=== PATIENT | female | born 1940 | race Caucasian/White ===

== ENCOUNTER 2016-10-16 15:07 | Inpatient (IN) | payer MEDICARE, BC ==
--- NOTE | ~2016-10-16 | HP ---
History And Physical [place] [id number] [facility] [place]. [address] NAME: ALLIE NARVAEZ : 38 STATUS : ADM IN [facility]#: [id number] AGE: 76 ADM/REG DATE : 10/16/16 MR#: [id number] REPORT SERV DATE: 10/17/16 DICTATED BY: VINCENT TOLEDO DATE: 10/16/16 REPORT STATUS : Draft TRANSCRIBED BY: TRIP DATE: 10/16/16 DATE OF ADMISSION: 10/16/2016 TIME: 8:00 p.m. HISTORY: The patient is a 76-year-old patient, well known to me, in her usual state of health when she went out on the track today for her walk up on [place]. Upon getting out of the car, she tripped on a rock and fell, resulting in a right shoulder pain and elbow pain. ER evaluation shows an impaction fracture of the right upper humerus and possibly an elbow fragment. She is seen in followup by Dr. Tariq Lyon with prior left total shoulder replacement with limited mobility related to this. Other medical problems include hypertension, hypercholesterolemia, generalized anxiety, unsteady gait, and distant history of vasovagal syncope, but none in years. HOME MEDICATIONS: Include atenolol 50 mg q.a.m., Restasis 0.05% one drop twice daily both eyes for dry eyes, fluoxetine 40 mg daily, L-thyroxine 25 mcg q.a.m., lorazepam 0.5 mg daily p.r.n. anxiety, Aleve 220 mg b.i.d. p.r.n., simvastatin 40 mg daily, Detrol LA 4 mg at bedtime, trazodone 50 mg a bedtime. ALLERGIES: INTOLERANCES INCLUDE CODEINE, DIAZEPAM, VERSED, HYDROCODONE CAUSES NAUSEA AND VOMITING. LATEX CAUSES HIVES. PHYSICAL EXAMINATION: VITAL SIGNS: Today BP 140/100 initially, recheck 140/80, pulse 60 and regular sinus rhythm. GENERAL: The patient was initially in moderate distress, better now with pain control. She is alert and oriented to person, place, and time. CHEST: Clear. CV: Regular rate and rhythm. No murmurs, gallops, or rubs. NECK: No bruits. ABDOMEN: Soft, nontender, nondistended. MUSCULOSKELETAL: Right shoulder is immobilized and not examined, it appears indurated. No trauma to the face, head, neck, hips, or knees. None to the feet. LABORATORY DATA: X-ray showed impaction proximal humeral fracture on the right. H and H 13.6 and 39.7, WBC 12,200. BUN and creatinine 11 and 0.59, glucose 116, sodium 135. IMPRESSION: 1. Status post trip and fall with resulting right humeral comminuted impaction fracture. 2. Possible elbow fracture fragment as well. Orthopedics to evaluate. 3. Unsteady gait. Chronically. 4. Hypertension. 5. Hypercholesterolemia. PLAN: She will be admitted due to inability to self-care with right humeral fracture History And Physical [address] [address] NAME: ALLIE NARVAEZ : 38 STATUS : ADM IN [facility]#: [id number] AGE: 76 ADM/REG DATE : 10/16/16 MR#: [id number] REPORT SERV DATE: 10/17/16 DICTATED BY: VINCENT TOLEDO DATE: 10/16/16 REPORT STATUS : Draft TRANSCRIBED BY: TRIP DATE: 10/16/16 complicated with making her right arm unusable with restricted use of the left arm due to prior left total shoulder replacement. Home medications will be continued. Unsteady gait will be assessed at the appropriate time. This has been a chronic persistent problem. She will also need to be transitioned to a penitentiary facility for further recovery after evaluated and treated by Orthopedics. Initially, she is in a sling and swath and is under pain control. Case management will have help with placement at the appropriate time. RUPALI/TIRP Vincent Toledo M.D. / [id number] CC: Harjit Mead M.D.
--- NOTE | ~2016-10-16 | DS ---
Discharge Summary [facility] [address] [place]. [address] NAME: ALLIE NARVAEZ : 38 STATUS : DIS IN PAT#: [id number] AGE: 76 ADM/REG DATE : 10/16/16 MR#: [id number] REPORT SERV DATE: 10/25/16 DICTATED BY: VINCENT TOLEDO DATE: 10/24/16 REPORT STATUS : Draft TRANSCRIBED BY: TRIP DATE: 10/24/16 Data Collection from hospitalization DISCHARGE DIAGNOSES: 1. Right proximal humerus fracture following a fall. 2. Elbow injury. 3. Diabetes. 4. Hypertension. 5. History of stroke. 6. History of transient ischemic attack. 7. Hearing loss. 8. Ringing in the ears. CONSULTATIONS: Tariq Lyon M.D. PROCEDURES PERFORMED: 1. CT scan of the right shoulder without contrast on 10/18/2016. 2. CT scan of the right upper extremity including elbow on 10/18/2016. MEDICATIONS: Tenormin 50 mg daily, vitamin B12 1000 mcg daily, Restasis one drop twice a day, vitamin D 1000 units daily, Lovenox 40 mg subcutaneously every 24 hours, Prozac 40 mg daily, Synthroid 25 mcg before breakfast, Zocor 40 mg at bedtime, Desyrel 50 mg at bedtime, Ativan 0.5 mg daily as needed, Aleve 220 mg twice a day as needed, Percocet 5/325 one tablet every six hours as needed, and Detrol LA 4 mg at bedtime. CONDITION AT DISCHARGE: Stable. DISPOSITION: The patient was discharged to [facility] on a regular diet with activities as instructed. HOSPITAL COURSE: This is a 76-year-old female who had been in her usual state of health when she went out on the track for her walk on [address] on the day of this admission. Upon getting out of her car, she tripped on a rock and fell resulting in right shoulder pain and elbow pain. Evaluation in the emergency room showed impaction fracture of the right upper humerus and possibly an elbow fragment. She is seen in followup by Dr. Tariq Lyon with prior left total shoulder replacement with limited mobility related to this. She was admitted to the hospital at this time for further evaluation and treatment. Upon admission, her home medications were continued. Her unsteady gait would be assessed at the appropriate time, this has been a chronic persistent problem. It was felt she would need to be transitioned to a group home facility for further recovery. She was initially in a sling and swathe and was under pain control. The following day, her pain was controlled. Her lungs were clear. She was seen by Dr. Tariq Lyon. He recommended conservative care of the right proximal humerus fracture in sling and swathe for six weeks. He wanted her to follow up in the clinic for x-rays in 7 to 10 days. On 10/18/2016, she had fair pain control. Her lungs remained clear. She was evaluated by Occupational and Physical Therapy. A CT scan of the shoulder without contrast was performed. There was a comminuted fracture of the right humeral head with impaction. There were at least three Discharge Summary [address] [address] NAME: ALLIE NARVAEZ : 38 STATUS : DIS IN PAT#: [id number] AGE: 76 ADM/REG DATE : 10/16/16 MR#: [id number] REPORT SERV DATE: 10/25/16 DICTATED BY: VINCENT TOLEDO DATE: 10/24/16 REPORT STATUS : Draft TRANSCRIBED BY: MODL DATE: 10/24/16 major fragments of the humeral head. The humeral head remained articulating with the glenoid fossa. CT scan of the right upper extremity without contrast including the elbow was also performed. There was right radial head fracture with free intra-articular fragment. Discharge planning was performed. On 10/19/2016, discharge instructions were given. Due to her improved and stable condition, she was discharged to [facility] with the above-stated instructions. Information collected by: Naya Mansfield I submit the above information as my discharge summary. TG/TRIP Vincent Toledo M.D. / [id number] CC: Vincent Toledo M.D. [facility]
[~2016-10-16 15:07] MED LIST: ACET500CAP PO; ALEVE220 MG PO; ATEN50 PO; ATV.5 PO; ATV1 PO; B COMPLETE PO; DETROL2 PO; DETROLLA4 PO; KLONO1 PO; LEVOTHYROXIN125 MCG PO; LEVOTHYROXIN25 MCG PO; PRILO PO; PRILOSEC40 MG PO; PROZ10 PO; PROZAC40 MG PO; TENORETIC1 TA1 PO; TRAZ100 PO; TRAZ50 PO; VITAMIN B-121000 MC1 SL; VITAMIN B-122500 MCG SL; ZETIA PO; ZOCOR40 PO
[2016-10-16 16:47] LABS: BASOPHILS 0.2 %; BASOPHILS ABSOLUTE 0.02 10/3/uL (0.0-0.16); EOSINOPHILS 2.1 %; EOSINOPHILS ABSOLUTE 0.26 10/3/uL (0.0-0.53); HEMATOCRIT 39.7 % (36.0-48.0); HEMOGLOBIN 13.6 g/dL (12.0-16.0); IMMATURE GRANULOCYTES 0.5 %; IMMATURE GRANULOCYTES ABSOLUTE 0.06 10/3/uL (0.0-0.11); LYMPHOCYTES 8.5 %; LYMPHOCYTES ABSOLUTE 1.03 10/3/uL (0.67-4.30); MEAN CORPUS HGB CONC 34.3 g/dL (32.0-36.0); MEAN CORPUSCULAR HEMOGLOB 31.6 pg (26.0-34.0); MEAN PLATELET VOLUME 9.2 fL (9.2-13.0); MONOCYTES 8.4 %; MONOCYTES ABSOLUTE 1.02 10/3/uL (0.21-1.20); NEUTROPHILS 80.3 %; NEUTROPHILS ABSOLUTE 9.78 10/3/uL (2.02-8.40); PLATELET COUNT 272 10/3/uL (150-400); RED CELL COUNT 4.31 10/6/uL (4.0-5.6)
[2016-10-16 16:48] LABS: ER CBC TAT 0 Hrs 11 Mins; INTERNATIONAL NORMAL RATI 1.1 UNITS (-); MANUAL DIFF NO %; MEAN CORPUSCULAR VOLUME 92.1 fL (80-100); PARTIAL THROMBO TIME 25.9 SEC (22.5-37.2); PROTIME (NOT ORD) 13.7 SEC (12.0-14.5); RBC DISTRIBUTION WIDTH 16.8 % (12.0-16.0); WHITE BLOOD CELLS 12.2 10/3/uL (4.5-10.5)
[2016-10-16 17:00] LABS: BUN (BLOOD UREA NITROGEN) 11 MG/DL (6-23); CALCIUM, SERUM 8.3 MG/DL (8.5-10.4); CHEST PAIN PROFILE TAT 0 Hrs 23 Mins; CHLORIDE, SERUM 100 MMOL/L (96-112); CO2 (CARBON DIOXIDE) 27 MMOL/L (24-34); CREATININE 0.59 MG/DL (0.55-1.02); GFR AFRICAN AMERICAN 102 ML/MIN (>=60); GFR NON AFRICAN AMERICAN 88 ML/MIN (>=60); SODIUM, SERUM 135 MMOL/L (135-148); TROPONIN I <0.02 NG/ML (<0.05)
[2016-10-16 17:01] LABS: GLUCOSE, SERUM 116 MG/DL (60-99)
[2016-10-16 17:26] LABS: ASCORBIC ACID (UR NOT ORDER) NEG (NEG); BILIRUBIN, URINE NEGATIVE (NEG); ER URINALYSIS TAT 0 Hrs 10 Mins; KETONE, URINE TRACE MG/DL (NEG); LEUKOCYTE ESTERASE(NOT OR NEG (NEG); NITRITE (URINE) NEG (NEG); WBC (NOT ORDERED) (RFLEX) 3 (0-5)
[2016-10-16] MEDS ORDERED: ZOCOR40 PO (17:47)
[2016-10-16] MEDS ORDERED: TRAZ50 PO (17:47)
[2016-10-16] MEDS ORDERED: PROZAC40 MG PO (17:47)
[2016-10-16] MEDS ORDERED: ATEN50 PO (17:47)
[2016-10-16] MEDS ORDERED: ATV.5 PO (17:47)
[2016-10-16] MEDS ORDERED: VENTOLIN HFA INH (17:48)
[2016-10-16] MEDS ORDERED: ALEVE220 MG PO (17:49)
[2016-10-16] MEDS ORDERED: SYN.025B PO (17:49)
[2016-10-16] MEDS ORDERED: DETROLLA4 PO (17:49)
[2016-10-16] MEDS ORDERED: RESTASIS OPH (17:50)
[2016-10-16] MEDS ORDERED: VITAMIN D31000 UNIT PO (17:50)
[2016-10-16] MEDS ORDERED: CYANO1000T PO (17:50)
[2017-01-28] MEDS ORDERED: PROTONIX PO (17:41)
[2017-01-28] MEDS ORDERED: PROZAC PO (17:42)
[2017-01-28] MEDS ORDERED: SYN.025B PO (17:42)
[2017-01-28] MEDS ORDERED: DETROLLA4 PO (17:42)
[2017-01-28] MEDS ORDERED: ATV.5 PO (17:48)
[2017-01-28] MEDS ORDERED: ZOCOR40 PO (17:49)
[2017-01-28] MEDS ORDERED: ATEN50 PO (17:49)
[2017-01-28] MEDS ORDERED: RESTASIS OPH (17:50)
[2017-01-28] MEDS ORDERED: VENTOLIN HFA INH (17:50)
[2017-01-28] MEDS ORDERED: VITAMIN B-12 PO (17:51)
[2017-01-28] MEDS ORDERED: VITAMIN D3 PO (17:52)
[2017-01-28] MEDS ORDERED: ACET500CAP PO (17:54)
[2017-01-28] MEDS ORDERED: METPAKSF PO (17:54)
== END 2016-10-19 14:37 | DRG 563 ==
LOC: ER 15:07 → 4SO 18:51
PROVIDERS: Emergency Medicine
PROC: 2W38XYZ Immobilization of Right Upper Extremity using Other Device (ICD-10-PCS; principal; 2016-10-16)
DX: S42.291A Other displaced fracture of upper end of right humerus, initial encounter for closed fracture (principal); I10 Essential (primary) hypertension; W18.09XA Striking against other object with subsequent fall, initial encounter; Y93.01 Activity, walking, marching and hiking; S52.121A Displaced fracture of head of right radius, initial encounter for closed fracture; Y92.39 Other specified sports and athletic area as the place of occurrence of the external cause; Z96.612 Presence of left artificial shoulder joint; E78.00 Pure hypercholesterolemia, unspecified; F41.1 Generalized anxiety disorder; R26.9 Unspecified abnormalities of gait and mobility; Z88.8 Allergy status to other drugs, medicaments and biological substances; Z88.5 Allergy status to narcotic agent; Z91.040 Latex allergy status
CPT/HCPCS: 71010; 73030-RT; 73060-RT; 73080-RT; 73200-RT; 80048; 81001; 82962; 83735; 83880; 84484; 85025; 85610; 85730; 96374; 96375; 97162-GP; 97166-GO; 99285; A9270-GY; G8978-CK-GP; G8979-CK-GP; G8980-CK-GP; J1170; J2405; J2930

== ENCOUNTER 2017-01-20 16:21 | Inpatient (IN) | payer MEDICARE, BC ==
--- NOTE | ~2017-01-20 | IDS ---
Interim Discharge Summary [facility] [address] [place]. [address] NAME: ALLIE NARVAEZ : 38 STATUS : ADM IN [facility]#: [id number] AGE: 76 ADM/REG DATE : 01/20/17 MR#: [id number] REPORT SERV DATE: 01/25/17 DICTATED BY: Rahul MUÑOZ DATE: 01/24/17 REPORT STATUS : Draft TRANSCRIBED BY: MODL DATE: 01/24/17 ADMISSION DATE: 01/20/2017 DISCHARGE DATE: INTERIM DISCHARGE DIAGNOSES: 1. Right femoral neck fracture. 2. Duodenal ulcer with erosive gastritis. 3. Diarrhea, chronic. 4. Hyponatremia. 5. Hypertension. 6. Hypothyroidism. 7. Acute blood loss anemia postoperatively. 8. Anxiety. PROCEDURES: 1. On January 22, the patient underwent a right femoral neck close reduction and internal fixation for a nondisplaced right femoral neck fracture. 2. On January 21, the patient underwent an EGD which revealed bile erosive gastritis which was biopsied; normal gastroesophageal junction; duodenitis; one duodenal ulcer; normal second part of the duodenum; nonerosive esophageal reflux disease per Dr. Davidson. IMAGING AND DIAGNOSTICS: 1. CT of abdomen and pelvis on January 20 revealed diffuse thickening gastric antrum suggesting antritis/duodenitis pattern. No discrete mass or ulcer mound identified although underlying ulcer disease not excluded. No pneumoperitoneum or ascites to suggest a penetrating ulcer. Moderate to severe dextroscoliosis, L-spine and severe multilevel degenerative disc disease; contour deformity right femoral neck consistent with an indeterminate age, subcapital femoral neck fracture. 2. January 20 PA and lateral chest x-ray revealed untreated fracture of the right shoulder with superior migration of the proximal shaft with marked 90 degree angulation of the shaft and humeral head. Lungs are clear. Cardiac silhouette. Hilar region, mediastinum, bone, and soft tissues are normal. 3. January 21 a hip x-ray revealed radiographic findings consistent with acute right femoral neck fracture. 4. A Gastrografin upper GI on January 21 showed no evidence of duodenal or pyloric antral ulcer on water-soluble upper GI exam. HISTORY OF PRESENT ILLNESS: Ms. Allie Narveaz is a very pleasant 76-year-old female, who was a direct admit from Dr. Davidson's office with abdominal pain, nausea, vomiting, dehydration. She was admitted to telemetry bed with Dr. Davidson's admission orders and a permit for EGD with possible biopsy was obtained. Initially, she was on clear liquids and made n.p.o. after midnight on January 20. On Dr. Davidson's admission orders hospitalists were consulted for medical management. Ms. Narvaez was initially seen by Dulce Sanford, nurse practitioner, on the evening of January 20. Hospital service has been managing the patient's medical problems since her admission. I initially saw the patient on the morning of January 21. After reviewing her CT of the abdomen and pelvis, it was noted that she had a right Interim Discharge Summary [address] [address] NAME: ALLIE NARVAEZ : 38 STATUS : ADM IN [facility]#: [id number] AGE: 76 ADM/REG DATE : 01/20/17 MR#: [id number] REPORT SERV DATE: 01/25/17 DICTATED BY: Rahul MUÑOZ DATE: 01/24/17 REPORT STATUS : Draft TRANSCRIBED BY: TRIP DATE: 01/24/17 subcapital femoral neck fracture and I consulted ortho service. The patient was initially seen on January [address] Marcus and Gilda Alvarez for the Orthopedic Service. They saw the patient after her EGD and wrote orders for Ms. Narvaez to be n.p.o. after midnight for surgery on her right hip the following day. I spoke to Vinita Chambers, nurse practitioner, for Dr. Davidson and informed her that we would take over as the primary for Ms. Narvaez, and they would stay as consultants. So on January 22, Ms. Narvaez did undergo right femoral neck closed reduction and internal fixation by Dr. Marcus. On January 24, Ms. Narvaez was seen, and she had no new complaints. She was ambulatory with physical therapy and really wanted to be discharged home rather than going to SNF or rehab. She continued to have diarrhea stools; however, the number of stools were decreasing and quantity was decreasing as well. The diarrhea is chronic as she has had this since October. Dr. Davidson documents that this is likely irritable bowel syndrome. Today, he has ordered Metamucil p.o. daily at bedtime and to continue her Florastor and Protonix. The patient was recently at [facility] after a fall with her right shoulder fracture healing in a sling and swathe without surgical intervention. Family states that she did not do so well there and all providers involved are okay with the patient going home at time of discharge rather than back to skilled care. However, she will be continuing over the weekend to work with physical therapy here for potentially discharging home Friday or Friday with outpatient physical therapy. DISPOSITION: Will be to home again on Friday or Friday and home health is recommended with some outpatient PT. DICTATED BY: GAYLE WhiteP-BC SHRAVAN/CHUNL Rahul Muñoz M.D. / [id number] CC: Harjit Shell M.D.
--- NOTE | ~2017-01-20 | HP ---
History And Physical [place] [place]. [address] NAME: ALLIE NARVAEZ : 36 STATUS : ADM IN [facility]#: [id number] AGE: 76 ADM/REG DATE : 01/20/17 MR#: [id number] REPORT SERV DATE: 01/20/17 DICTATED BY: MISHA DAVIDSON DATE: 01/20/17 REPORT STATUS : Draft TRANSCRIBED BY: MODGlenda DATE: 01/20/17 DATE OF ADMISSION: 01/20/2017 HISTORY OF PRESENT ILLNESS: This is a 76-year-old woman, who is being admitted from my office for upper abdominal pain, nausea, vomiting, melenic stool, and dehydration. This woman has had a variety of orthopedic injuries over the years with trauma from several falls. She injured her left shoulder in 2010 and had to have a shoulder replacement and then a repeat surgery in 2014. This year, she fell and fractured her right humerus. They did not feel it was surgically remediable, and they just let it close on its own. She had been to rehabilitation at [facility], but did not do very well there and only recently has come back to her home. She is having regular caregivers come there and her son, Manoj Narvaez, and [id number], Laura Narvaez, have been looking in on her making sure that she is cared for. Interestingly, she has used Aleve [id number] for years, reporting taking two 220 mg tablets or 440 mg twice daily for years. She has been having intermittent upper abdominal pain and nausea for quite some time. This is worse on the empty stomach and at night. This has become quite severe over the past five to six days. It has gotten to the point where she cannot keep anything down. She has had multiple episodes of emesis over the past few days, but they have only been bilious. There has been no obvious blood. Her stools on the other hand, however, seemed to be melenic. She saw her primary care physician and apparently had some lab work about a month ago. She reports about a 20-pound weight loss since the onset of this illness. The most recent laboratory tests I have for review are from 12/02, at which point her hemoglobin was normal at 13.4 and white count was 6.5. PAST MEDICAL HISTORY: 1. Remote history of peptic ulcer disease, for which she said she had an upper endoscopy at [place] about 20 years ago. 2. Degenerative disk disease, for which she is using the Aleve chronically. 3. Hypertension. 4. Hyperlipidemia. 5. Possible history of diabetes. 6. Hypothyroidism. PAST SURGICAL HISTORY: Status post left shoulder replacement x2 in 2010 and 2014, status post recent healing of the right humerus fracture, status post appendectomy, status post hysterectomy with bilateral salpingo-oophorectomy, status post back surgery. MEDICATIONS: Prozac, lorazepam, simvastatin, Synthroid, tolterodine, Aleve 440 mg twice daily, Tums as needed. ALLERGIES: VALIUM, LATEX, HYDROCODONE CAUSES NAUSEA. FAMILY HISTORY: No GI malignancy. History And Physical [address] [address] NAME: ALLIE NARVAEZ : 38 STATUS : ADM IN [facility]#: [id number] AGE: 76 ADM/REG DATE : 01/20/17 MR#: [id number] REPORT SERV DATE: 01/20/17 DICTATED BY: MISHA DAVIDSON DATE: 01/20/17 REPORT STATUS : Draft TRANSCRIBED BY: TRIP DATE: 01/20/17 SOCIAL HISTORY: She uses no tobacco, but she does drink a moderate amount of alcohol. Her son, Manoj Narvaez, and [id number]-[id number], Laura Narvaez, are patients of ours and are her primary caregivers. REVIEW OF SYSTEMS: Otherwise, unremarkable for general, endocrine, neurologic, psychiatric, pulmonary, cardiovascular or rheumatologic conditions, except for as noted above. PHYSICAL EXAMINATION: GENERAL: She is somewhat frail-appearing elderly woman, who is quite anxious and seems to be in some distress from abdominal pain. VITAL SIGNS: Afebrile. SKIN: Warm and dry. LUNGS: Clear to auscultation. CARDIOVASCULAR: Tachycardic, but without any audible murmur or gallop. ABDOMEN: Soft, but moderately tender in the epigastrium. There is no guarding or rebound tenderness. EXTREMITIES: No edema. IMPRESSION: Significant upper abdominal pain, accompanied by nausea, vomiting, dehydration, and possible melenic stool, the picture is most consistent with nonsteroidal-induced peptic ulcer disease with possible gastrointestinal bleeding, but doubt whether there is any evidence of perforation. RECOMMENDATIONS: 1. We will go ahead and admit her tonight for hydration, antiemetic therapy, and pain medication. 2. We will arrange medical consultation. 3. We will start Protonix 40 mg IV twice daily. 4. We will go ahead and get a CT scan this evening to rule out perforation or other pathology. 5. We will plan upper endoscopy tomorrow afternoon to further guide therapy. /MODL Misha Davidson M.D. / [id number] CC: Harjit Clay M.D.
--- NOTE | ~2017-01-20 | EGD ---
EGD REPORT [facility] [address] [place]. [address] NAME: ALLIE NARVAEZ : 38 STATUS : ADM IN PAT#: [id number] AGE: 76 ADM/REG DATE : 01/20/17 MR#: [id number] REPORT SERV DATE: 01/21/17 DICTATED BY: YAN ROSAS DATE: 01/21/17 REPORT STATUS : Draft TRANSCRIBED BY: [facility] DATE: 01/21/17 Endoscopy Center Patient Name: Allie Narvaez Date of : 1940 Attending MD: YAN ROSAS MD Procedure Date No Time: 01/21/2017 Procedure: Upper GI endoscopy Indications: Epigastric abdominal pain, Anemia, Melena, Nausea with vomiting, Chronic NSAID use Referring MD: JESSICA FONSECA Medicines: Propofol per Anesthesia Complications: No immediate complications. Estimated blood loss: None. Procedure: Pre-Anesthesia Assessment: - After reviewing the risks and benefits, the patient was deemed in satisfactory condition to undergo the procedure. - Prior to the procedure, a History and Physical was performed, and patient medications and allergies were reviewed. The patient's tolerance of previous anesthesia was also reviewed. The risks and benefits of the procedure and the sedation options and risks were discussed with the patient. All questions were answered, and informed consent was obtained. Prior Anticoagulants: The patient has taken no previous anticoagulant or antiplatelet agents. ASA Grade Assessment: III - A patient with severe systemic disease. After reviewing the risks and benefits, the patient was deemed in satisfactory condition to undergo the procedure. After obtaining informed consent, the endoscope was passed under direct vision. Throughout the procedure, the patient's blood pressure, pulse, and oxygen saturations were monitored continuously. The GIF [id number] was introduced through the mouth, and advanced to the third part of duodenum. The upper GI endoscopy was accomplished without difficulty. The patient tolerated the procedure well. Findings: Diffuse moderate erythema was found in the lower third of the esophagus consistent with non-erosive reflux disease. Diffuse mild inflammation characterized by congestion (edema) and a few superficial erosions was found in the gastric antrum. Biopsies were taken with a cold forceps for histology. Estimated blood loss: none. The gastroesophageal junction (on retroflexion) was normal. Diffuse moderate inflammation characterized by congestion (edema) and EGD REPORT [id number] [place]. [address] NAME: ALLIE NARVAEZ : 36 STATUS : ADM IN [facility]#: [id number] AGE: 76 ADM/REG DATE : 01/20/17 MR#: [id number] REPORT SERV DATE: 01/21/17 DICTATED BY: YAN ROSAS DATE: 01/21/17 REPORT STATUS : Draft TRANSCRIBED BY: [facility] DATE: 01/21/17 erythema was found in the duodenal bulb. One non-bleeding deeply cratered duodenal ulcer with pigmented material was found in the duodenal bulb right at the apex. The lesion was 15 mm in largest dimension. Estimated blood loss: none. The 2nd part of the duodenum was normal and could be examined after sliding past the ulcer at the apex. Impression: - Bile erosive gastritis. Biopsied. - Normal gastroesophageal junction. - Duodenitis. - One duodenal ulcer. - Normal 2nd part of the duodenum. - Non-erosive esophageal reflux (NERD) disease present. Recommendation: - Return patient to [facility] for ongoing care. - Gastrograffin UGI today. - Soft diet after above. - Continue present medications. - Discontinue Aleve and other NSAID medications. - Await pathology results. - H. pylori antibody test. Procedure Code(s): --- Professional --- 58011, Esophagogastroduodenoscopy, flexible, transoral; with biopsy, single or multiple Diagnosis Code(s): --- Professional --- K29.60, Other gastritis without bleeding K29.80, Duodenitis without bleeding K26.9, Duodenal ulcer, unspecified as acute or chronic, without hemorrhage or perforation K21.9, Gastro-esophageal reflux disease without esophagitis R10.13, Epigastric pain D64.9, Anemia, unspecified K92.1, Melena R11.2, Nausea with vomiting, unspecified CPT copyright 2013 [employer]. All rights reserved. The codes documented in this report are preliminary and upon electric motor assembler and tester review may be revised to meet current compliance requirements. YAN ROSAS MD 01/21/2017 2:29 PM EGD REPORT [facility] [address] [place] [place]. [address] NAME: ALLIE NARVAEZ : 36 STATUS : ADM IN [facility]#: [id number] AGE: 76 ADM/REG DATE : 01/20/17 MR#: [id number] REPORT SERV DATE: 01/21/17 DICTATED BY: YAN ROSAS DATE: 01/21/17 REPORT STATUS : Draft TRANSCRIBED BY: [facility] DATE: 01/21/17 This report has been signed electronically. Number of Addenda: 0 Note Initiated On: 01/21/2017 1:57 PM Scope Withdrawal Time 0 hours 0 minutes 0 seconds [address] [facility] [address] [place] [address]
--- NOTE | ~2017-01-20 | OP ---
Record Of Operation [facility] [address] [place]. [address] NAME: ALLIE NARVAEZ : 36 STATUS : ADM IN [facility]#: [id number] AGE: 76 ADM/REG DATE : 01/20/17 MR#: [id number] REPORT SERV DATE: 01/23/17 DICTATED BY: AMY CARVALHO DATE: 01/23/17 REPORT STATUS : Draft TRANSCRIBED BY: MODL DATE: 01/23/17 DATE OF PROCEDURE: 01/22/2017 PREOPERATIVE DIAGNOSIS: Right femoral neck fracture, nondisplaced. POSTOPERATIVE DIAGNOSIS: Right femoral neck fracture, nondisplaced. PROCEDURE: Right femoral neck closed reduction and internal fixation. SURGEON: Parker Carvalho M.D. PROGRAM STRATEGIST: See chart. DESCRIPTION OF PROCEDURE: The patient was taken to the operating room and placed supine on the table in normal fashion without an incident. IV sedation was induced per the anesthesiologist. Local anesthetic was infiltrated with a 25-gauge needle around the trochanter. Percutaneous pinning was done with a guidewire through a percutaneous approach just superior to the lesser trochanter. It was checked from the AP and lateral views and at the femoral head. This was followed by a small incision, and a parallel pin guide was used to place two other pins. This was followed by depth gauge, drilling the near cortex, and self-drilling and self-tapping screws were placed and tightened by hand. The guidewires were removed. Wound irrigated, closed and dressed sterilely. The patient was awakened and taken to the postanesthesia care unit without incident. COMPLICATIONS: None. SPECIMENS: None. ESTIMATED BLOOD LOSS: Trace. WTB/MODL Parker Carvalho M.D. / [id number] CC: Harjit Shell M.D.
--- NOTE | ~2017-01-20 | CN ---
Consultation Report [address] [place]. [address] NAME: ALLIE NARVAEZ : 38 STATUS : ADM IN PAT#: [id number] AGE: 76 ADM/REG DATE : 01/20/17 MR#: [id number] REPORT SERV DATE: 01/21/17 DICTATED BY: DULCE HADLEY DATE: 01/20/17 REPORT STATUS : Draft TRANSCRIBED BY: MODL DATE: 01/20/17 CONSULTATION REPORT DATE OF CONSULTATION: 01/20/2017 REASON FOR CONSULTATION: Consulted for medical management, history of shortness of breath and anxiety. IDENTIFYING DATA: 1. PCP, Hoa Mead 2. Orthopedist, Tariq Lyon M.D. 3. Peat Shredder Tender, Misha Davidson M.D. HISTORY OF PRESENT ILLNESS: This is a pleasant 76-year-old female who is admitted per Dr. Misha Davidson with nausea, vomiting, dehydration, and abdominal pain. She has a history of hypertension, hypercholesterolemia, anxiety, GERD, hypothyroidism, bronchitis in the past, history states diabetes as well as TIAs and CVA in the past, although the patient denies being diabetic or ever having a stroke. The [facility] has been consulted to help manage her medical management while she is inpatient as well as her history of being short of breath with anxiety. The patient's history was obtained through careful interview with the patient, coupled with review of I.Predictus and OopsLabx. PAST MEDICAL HISTORY: 1. Hypertension. 2. Hypercholesterolemia. 3. Hearing loss. 4. Ringing in the ears. 5. Wears glasses. 6. Diabetes. 7. TIA. 8. History of CVA. 9. Anxiety. 10.GERD. 11.Hypothyroidism. 12.Back problems. 13.Bladder infections. 14.IOLI. 15.Bronchitis. HOME MEDICATIONS: 1. Atenolol 50 mg p.o. daily. Consultation Report [address] [place] [place]. [address] NAME: ALLIE NARVAEZ : 38 STATUS : ADM IN PAT#: [id number] AGE: 76 ADM/REG DATE : 01/20/17 MR#: [id number] REPORT SERV DATE: 01/21/17 DICTATED BY: DULCE HADLEY SELENE DATE: 01/20/17 REPORT STATUS : Draft TRANSCRIBED BY: TRIP DATE: 01/20/17 2. Vitamin D3 1000 units p.o. daily. 3. Vitamin B12 1000 mcg sublingual daily. 4. Prozac 40 mg p.o. daily. 5. Levothyroxine 25 mcg p.o. daily. 6. Ativan 0.5 mg p.o. at bedtime as needed p.r.n. anxiety. 7. Zocor 40 mg p.o. at bedtime. 8. Detrol LA 4 mg p.o. daily. ALLERGIES: 1. HYDROCODONE. 2. LATEX. 3. CODEINE. 4. VALIUM. 5. VERSED. SOCIAL HISTORY: The patient is a , lives on [address] and lives alone. She has one daughter, who has an adopted child. She has one son, has two children, a total of three grandchildren. She does not smoke. She drinks a glass of wine one to two times per week. She does use a cane to ambulate around her home and she states she is putting in an elevator to help in her mobility. FAMILY HISTORY: 1. Mother is , had blood pressure problems. 2. Father was killed in World War II. 3. She has one sister who lives in [place], and recently had a pacemaker. PAST SURGICAL HISTORY: 1. Total left shoulder arthroplasty on 11/24/2014. 2. Hysterectomy. 3. Left shoulder mini open seroma drainage on 09/19/2014. 4. Right proximal humerus fracture. 5. Elbow injury. 6. Previous back surgery. 7. IOLI on the left. REVIEW OF SYSTEMS: Negative other than what is in HPI. The patient is alert and oriented x3. She has no shortness of breath. She states she did have bronchitis in the past and she gets anxious and has an anxiety problem. She has no abdominal pain presently. She states she has had nausea usually and vomiting after eating within an hour or two after eating food. States no chest pain. No fever. Displays no confusion or agitation. PHYSICAL EXAMINATION: VITAL SIGNS: From today; blood pressure 151/75, respiratory rate 18, O2 saturation 98% to 100% on room air, heart rate 84, and temperature 98.2. Consultation Report [place] [address] [place] [address] NAME: ALLIE NARVAEZ : 38 STATUS : ADM IN PAT#: [id number] AGE: 76 ADM/REG DATE : 01/20/17 MR#: [id number] REPORT SERV DATE: 01/21/17 DICTATED BY: DULCE HADLEY DATE: 01/20/17 REPORT STATUS : Draft TRANSCRIBED BY: MODGlenda DATE: 01/20/17 GENERAL: This is a very pleasant, 76-year-old, female, resting in bed, in no acute distress. NEURO: Her head is atraumatic and normocephalic. She is alert and oriented x3. Her cranial nerves are intact. She is pleasant and appropriate. She is not aware though of her medications. She does have a list she states through her doctor on her medications as taken daily. NECK: Supple. Trachea is midline. No JVD noted. No obvious thyromegaly or lymphadenopathy. EENT: Her sclerae are nonicteric. Pupils are equal and reactive to light. Her nares are patent. Her mucous membranes are moist. Tongue is midline without deviation. Soft palate rises equally on phonation. CHEST: No pain with palpation. LUNGS: Clear to auscultation bilaterally. She has normal respiratory effort and no increased work of breathing with conversation. CARDIOVASCULAR: S1 and S2. No obvious murmurs, rubs, or gallops. Her rhythm is regular. She is on telemetry with sinus rhythm with a rate at 80. ABDOMEN: Soft and nontender. Presently, bowel sounds are hypoactive. No palpable organomegaly. The patient states she had a small bowel movement yesterday on 01/19/2017, but she has not been eating well. EXTREMITIES: Normal distal pulses. No calf tenderness. No edema. She does have a right lower extremity bruise noted on her alford. She will have SCDs as well as TEDs placed for DVT prophylaxis. SKIN: Warm and dry. No unusual rashes. She does have the bruising to her alford on the right lower extremity. Normal color and turgor for age. PSYCH: She is pleasant and cooperative. She states she does have an anxiety problem. Presently, her mood is appropriate as well as her affect. LABORATORY DATA: Sodium 123, potassium 2.9, chloride 88, BUN 9, creatinine 0.75, GFR 88, glucose 119, and calcium 9.8. White blood cells 13.9, hemoglobin 13.1, hematocrit 36.4, and platelets 482. TSH is 3.420. Hemoglobin A1c is 5.5. She presently has a PA and lateral chest x-ray ordered by GI. She also has an ECG ordered. On 10/05/2010, she had an echo that showed a normal echo with no significant valvular regurgitation. She also has a CT of the abdomen and pelvis with and without contrast ordered by GI, still pending. ASSESSMENT AND PLAN: 1. The patient does have a history of hypertension as well as according to history transient ischemic attack and a stroke. I am not aware of any deficits presently. She does state that she uses a walker when she is at home. She is placed on telemetry. We will continue her Tenormin as ordered. 2. Diabetes type 2. The patient's present hemoglobin A1c is 5.5. She is on no medications at home. She has had orthopedic surgery in the past for which she probably had steroids and had elevated glucose. Presently on labs, her glucose is 119. We will recheck a fingerstick blood sugar and then place her on fingerstick blood sugars q.6 Consultation Report [place] [id number] [facility] [place]. [address] NAME: ALLIE NARVAEZ : 38 STATUS : ADM IN [facility]#: [id number] AGE: 76 ADM/REG DATE : 01/20/17 MR#: [id number] REPORT SERV DATE: 01/21/17 DICTATED BY: DULCE HADLEY DATE: 01/20/17 REPORT STATUS : Draft TRANSCRIBED BY: TRIP DATE: 01/20/17 hours and staff can call if blood sugar is greater or equal to 150. 3. Anxiety. Aware. The patient does states she gets anxious frequently. We will continue her nightly dose of Ativan p.r.n. for anxiety. We will also give her melatonin 3 mg p.r.n. nightly for sleep as needed and continue her daily dose of Prozac. 4. Gastroesophageal reflux disease. Aware. We will continue her Protonix IV b.i.d. as ordered. 5. Hypothyroidism. Aware. Her present TSH is 3.420. We will continue her daily dose of levothyroxine. 6. Hypercholesterolemia. Aware. We will continue her Zocor daily. 7. Hypokalemia, on present labs, her potassium was 2.9. She is on the electrolyte protocol and her present IV has 20 of KCl included for maintenance. She will get labs in the morning. 8. Hyponatremia, on labs. She is on an IV with D5 normal saline. We will recheck her morning labs. 9. Deep venous thrombosis prophylaxis. We will order SCDs as well as TEDs bilaterally for deep venous thrombosis prophylaxis and a.m. labs to be obtained. Presently, she has:. a. BMP. b. Magnesium. c. Phosphorus. d. CBC. e. Hemoglobin A1c. f. EKG. g. UA. h. TSH. i. CT of the abdomen and pelvis is ordered by GI, pending. 10.The Hospitalist Group would like to thank you for this consultation. Please let us know if we could be of further assistance. MATT Dulce Hadley NP / [id number] CC: Harjit Clay M.D.
--- NOTE | ~2017-01-20 | DS ---
Discharge Summary [place] [id number] [facility] [place]. [address] NAME: ALLIE NARVAEZ : 38 STATUS : DIS IN PAT#: [id number] AGE: 76 ADM/REG DATE : 01/20/17 MR#: [id number] REPORT SERV DATE: 01/27/17 DICTATED BY: JR. JAMISNO WILLIAM JOHN DATE: 01/26/17 REPORT STATUS : Draft TRANSCRIBED BY: TRIP DATE: 01/26/17 ADMISSION DATE: 01/20/2017 DISCHARGE DATE: 01/26/2017 DISCHARGE DIAGNOSES: 1. Right femoral neck fracture. 2. Duodenal ulcer with erosive gastritis. 3. Chronic diarrhea. 4. 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 5. Essential hypertension. 6. Hypothyroidism. 7. Anxiety. 8. Postop acute blood loss anemia. OPERATIONS/PROCEDURES AND TREATMENTS: 1. PA and lateral chest x-ray done 01/20/2017, which showed untreated fracture of the right shoulder. There has been superior migration of the proximal shaft with a marked 90 degree angulation of the humeral head. 2. CT of the abdomen and pelvis which showed diffuse thickening of the gastric antrum, first and second portion of the duodenum suggestive of antritis with duodenitis. There is no discrete mass or ulcer identified. No pneumoperitoneum or ascites. There is moderate to severe dextroscoliosis. There was 25% chronic insufficiency fracture pattern of the inferior T11 vertebra. There was contour deformity of the right femoral neck consistent with an indeterminate age subcapital femoral neck fracture. There is a hip x-ray done 01/21/2017 which showed findings most consistent with acute right femoral neck fracture. 3. Water-soluble contrast GI which showed no evidence of duodenal or pyloric antral ulcer on water-soluble upper GI exam. 4. EGD done 01/20/[address] Davidson, which showed diffuse moderate air edema in the lower third of the esophagus consistent with nonerosive reflux disease. There was mild inflammation with edema and a few superficial erosions in the gastric antrum. The duodenal bulb had diffuse air edema. There was one nonbleeding deeply crater duodenal ulcer with pigmented material at the apex of the duodenum. Lesion was 15 mm in largest diameter. 5. Right femoral neck closed reduction internal fixation done by Dr. Marcus on 01/23/2017 with percutaneous pinning. DISCHARGE MEDICATIONS: Include: 1. Protonix 40 mg orally twice a day. 2. Psyllium one packet at bedtime. 3. Simvastatin 40 mg daily. 4. Ativan 0.5 mg as needed at bedtime. 5. Detrol 4 mg orally daily. 6. [place] 7.5/325 one tablet every four hours p.r.n., dispensing #30. 7. Atenolol 50 mg orally daily. 8. Vitamin B12 of 1000 mcg sublingually daily. Discharge Summary [place] [address] [place]. [address] NAME: ALLIE NARVAEZ : 38 STATUS : DIS IN PAT#: [id number] AGE: 76 ADM/REG DATE : 01/20/17 MR#: [id number] REPORT SERV DATE: 01/27/17 DICTATED BY: JR. JAMISON WILLIAM JOHN DATE: 01/26/17 REPORT STATUS : Draft TRANSCRIBED BY: TRIP DATE: 01/26/17 9. Vitamin D3 of 1000 units daily. 10.Ferrous sulfate 300 mg orally twice a day. 11.Prozac 40 mg daily. 12.Synthroid 25 mcg daily. HOSPITAL COURSE: The patient is a 76-year-old female, sent to the hospital from Dr. Davidson's office on 01/20/2017 for upper abdominal pain, nausea, melanotic stool, and dehydration. The patient has had a variety of orthopedic injuries including a left shoulder injury in 2010 with repair at that time and a repeat surgery in 2014. She also fell recently with a fracture of a right humerus which was not amenable to surgical repair. She had also had multiple other falls. She had been using Aleve over the counter and was at Dr. Davidson's office, was transferred/admitted to the hospital for further care. Care was subsequently transferred to the Hospitalist Service. She had a CT of the abdomen and pelvis, which noted abnormal findings of the right femoral neck consistent with fracture. This was an unknown diagnosis at admission and Orthopedic Surgery was consulted. Regarding the right femoral neck fracture, the patient underwent a percutaneous pinning procedure by Dr. Marcus on 01/22/2017 without complications. Postop, she participated with physical therapy. The patient strongly desired discharge home. She already has outpatient physical therapy with rides arranged and has a walker and has no durable medical good needs. Regarding the duodenal ulcer and erosive gastritis, the patient underwent upper endoscopy as above by Dr. Davidson. Recommendation was for b.i.d. proton pump inhibitor with relook endoscopy in eight weeks by Dr. Davidson. Orders have been placed for followup appointment six to [address] Davidson. 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 The patient was placed on fluid restriction and her sodium improved. She is discharged with a sodium of 134. Regarding the postop anemia, the patient is placed on iron. She is discharged with a hemoglobin level of 11. The remainder of the patient's health problems were stable and were not addressed. The patient will be discharged home. DISCHARGE DIET: Will be regular with a 1.5 L fluid restriction. ACTIVITY: Per Orthopedic Surgery's instructions. FOLLOWUP: Includes: 1. Follow up with Dr. Vincent Toledo in two to four weeks. 2. Follow up with Dr. Davidson in six to eight weeks for a relook endoscopy and followup of pathology. 3. Follow up with Dr. Marcus per his wishes. Discharge Summary [address] [address] NAME: ALLIE NARVAEZ : 38 STATUS : DIS IN PAT#: [id number] AGE: 76 ADM/REG DATE : 01/20/17 MR#: [id number] REPORT SERV DATE: 01/27/17 DICTATED BY: JR. JAMISON WILLIAM JOHN DATE: 01/26/17 REPORT STATUS : Draft TRANSCRIBED BY: TRIP DATE: 01/26/17 For discharge exam and laboratory, please see daily progress note. This discharge took greater than 30 minutes for patient encounter, coordination of care, and documentation. DICTATED BY: Julius Jamison Jr, MD WJF/TRIP Julius Jamison Jr, MD / [id number] CC: Julius Jamison Jr, MD Collin Cherry, M.D.
--- NOTE | ~2017-01-20 | HP ---
History And Physical [address] [place]. [address] NAME: ALLIE NARVAEZ : 38 STATUS : ADM IN PAT#: [id number] AGE: 76 ADM/REG DATE : 01/20/17 MR#: [id number] REPORT SERV DATE: 01/22/17 DICTATED BY: AMY CARVALHO DATE: 01/22/17 REPORT STATUS : Draft TRANSCRIBED BY: MODL DATE: 01/22/17 DATE OF ADMISSION: 01/20/2017 CHIEF COMPLAINT: Right hip pain. HISTORY: A 76-year-old female reports falling on her right hip a couple of weeks ago. She was admitted for evaluation of abdominal and pelvic pain with nausea, vomiting, dehydration, and found by CT scan to have a femoral neck fracture. She denies orthopedic pain or injury elsewhere. ALLERGIES: VERSED, VALIUM, CODEINE, HYDROCODONE, LATEX. MEDICATIONS: See chart. PAST MEDICAL HISTORY: Hypertension, hypercholesterolemia, bronchitis, GERD, hypothyroidism, anxiety. PAST SURGICAL HISTORY: Appendectomy, tonsillectomy, back surgery, hysterectomy, seroma, left shoulder drained. SOCIAL HISTORY: About two alcoholic beverages a day. No cigarettes or illicit drug use. Here with her son. FAMILY HISTORY: No anesthetic complications. REVIEW OF SYSTEMS: Otherwise negative except as above. PHYSICAL EXAMINATION: GENERAL: Alert and oriented x3, in no apparent distress. HEENT: Atraumatic, normocephalic. NECK: Supple. CHEST: Symmetric, nontender. LUNGS: Per Medicine evaluation. CV: Regular rate and rhythm. ABDOMEN: Soft. No mass. EXTREMITIES: Both upper extremities and left lower extremity without acute trauma. Right hip with decreased range of motion with pain. Skin is intact. Compartment supple. 2+ pulses. NEURO: Sensory and motor without deficit. X-RAY: CT scan, nondisplaced right femoral neck fracture. ASSESSMENT: Right femoral neck fracture. PLAN: Closed reduction, internal fixation. Risks, benefits, etc., explained. The patient History And Physical [address] [place]. [address] NAME: ALLIE NARVAEZ : 38 STATUS : ADM IN PAT#: [id number] AGE: 76 ADM/REG DATE : 01/20/17 MR#: [id number] REPORT SERV DATE: 01/22/17 DICTATED BY: AMY CARVALHO DATE: 01/22/17 REPORT STATUS : Draft TRANSCRIBED BY: MODL DATE: 01/22/17 wishes to proceed. WTB/MODL Parker Carvalho M.D. / [id number] CC: Harjit Clay M.D.
[~2017-01-20 16:21] MED LIST changes: +CYANO1000T PO; +RESTASIS OPH; +SYN.025B PO; +VENTOLIN HFA INH; +VITAMIN D31000 UNIT PO
[2017-01-20 17:51] LABS: BASOPHILS 0.1 %; BASOPHILS ABSOLUTE 0.01 10/3/uL (0.0-0.16); EOSINOPHILS 0.2 %; EOSINOPHILS ABSOLUTE 0.03 10/3/uL (0.0-0.53); HEMATOCRIT 36.4 % (36.0-48.0); HEMOGLOBIN 13.1 g/dL (12.0-16.0); IMMATURE GRANULOCYTES 0.4 %; IMMATURE GRANULOCYTES ABSOLUTE 0.06 10/3/uL (0.0-0.11); LYMPHOCYTES 7.3 %; LYMPHOCYTES ABSOLUTE 1.01 10/3/uL (0.67-4.30); MEAN CORPUSCULAR HEMOGLOB 30.4 pg (26.0-34.0); MEAN PLATELET VOLUME 8.5 fL (9.2-13.0); MONOCYTES 9.4 %; MONOCYTES ABSOLUTE 1.31 10/3/uL (0.21-1.20); NEUTROPHILS 82.6 %; NEUTROPHILS ABSOLUTE 11.49 10/3/uL (2.02-8.40); PLATELET COUNT 482 10/3/uL (150-400); RBC DISTRIBUTION WIDTH 13.6 % (12.0-16.0); RED CELL COUNT 4.31 10/6/uL (4.0-5.6)
[2017-01-20 17:56] LABS: MANUAL DIFF NO %; MEAN CORPUSCULAR VOLUME 84.5 fL (80-100); WHITE BLOOD CELLS 13.9 10/3/uL (4.5-10.5)
[2017-01-20 18:10] LABS: A/G RATIO 1.2 (0.7-1.9); ALBUMIN 3.9 G/DL (3.5-5.0); ALKALINE PHOSPHATASE 116 U/L (45-117); BUN (BLOOD UREA NITROGEN) 9 MG/DL (6-23); CALCIUM, SERUM 9.8 MG/DL (8.5-10.4); CHLORIDE, SERUM 88 MMOL/L (96-112); CO2 (CARBON DIOXIDE) 20 MMOL/L (24-34); CREATININE 0.75 MG/DL (0.55-1.02); GFR AFRICAN AMERICAN 88 ML/MIN (>=60); GFR NON AFRICAN AMERICAN 76 ML/MIN (>=60); GLOBULIN 3.3 G/DL (2.5-4.1); GLUCOSE, SERUM 119 MG/DL (60-99); POTASSIUM, SERUM 2.9 MMOL/L (3.5-5.3); SGOT(AST) 17 U/L (5-40); SGPT(ALT) 18 U/L (5-65); SODIUM, SERUM 123 MMOL/L (135-148); TOTAL BILIRUBIN 0.9 MG/DL (0-1.2); TOTAL PROTEIN 7.2 G/DL (6.0-8.5)
[2017-01-20] MEDS ORDERED: PROZAC40 MG PO (20:47)
[2017-01-20] MEDS ORDERED: ATV.5 PO (20:48)
[2017-01-20] MEDS ORDERED: ZOCOR40 PO (20:49)
[2017-01-20] MEDS ORDERED: DETROLLA4 PO (20:50)
[2017-01-20] MEDS ORDERED: LEVOTHYROXIN25 MCG PO (20:50)
[2017-01-20] MEDS ORDERED: ATEN50 PO (20:51)
[2017-01-20] MEDS ORDERED: VITAMIN D31000 UNIT PO (20:51)
[2017-01-20] MEDS ORDERED: VITAMIN B-121000 MC1 SL (20:51)
[2017-01-20 23:51] LABS: POTASSIUM, SERUM 3.3 MMOL/L (3.5-5.3)
[2017-01-21 06:43] LABS: BASOPHILS 0.3 %; BASOPHILS ABSOLUTE 0.03 10/3/uL (0.0-0.16); EOSINOPHILS 1.1 %; EOSINOPHILS ABSOLUTE 0.13 10/3/uL (0.0-0.53); HEMATOCRIT 32.4 % (36.0-48.0); HEMOGLOBIN 11.3 g/dL (12.0-16.0); IMMATURE GRANULOCYTES 0.6 %; IMMATURE GRANULOCYTES ABSOLUTE 0.07 10/3/uL (0.0-0.11); LYMPHOCYTES 14.5 %; LYMPHOCYTES ABSOLUTE 1.67 10/3/uL (0.67-4.30); MANUAL DIFF NO %; MEAN CORPUS HGB CONC 34.9 g/dL (32.0-36.0); MEAN CORPUSCULAR HEMOGLOB 30.6 pg (26.0-34.0); MEAN CORPUSCULAR VOLUME 87.8 fL (80-100); MEAN PLATELET VOLUME 8.7 fL (9.2-13.0); MONOCYTES 11.8 %; MONOCYTES ABSOLUTE 1.36 10/3/uL (0.21-1.20); NEUTROPHILS 71.7 %; NEUTROPHILS ABSOLUTE 8.26 10/3/uL (2.02-8.40); PLATELET COUNT 445 10/3/uL (150-400); RED CELL COUNT 3.69 10/6/uL (4.0-5.6); WHITE BLOOD CELLS 11.5 10/3/uL (4.5-10.5)
[2017-01-21 06:50] LABS: BUN (BLOOD UREA NITROGEN) 7 MG/DL (6-23); CHLORIDE, SERUM 95 MMOL/L (96-112); CREATININE 0.67 MG/DL (0.55-1.02); GFR AFRICAN AMERICAN 98 ML/MIN (>=60); GFR NON AFRICAN AMERICAN 84 ML/MIN (>=60); PHOSPHORUS, SERUM 3.4 MG/DL (2.5-4.5); POTASSIUM, SERUM 3.8 MMOL/L (3.5-5.3); SODIUM, SERUM 128 MMOL/L (135-148)
[2017-01-21 06:51] LABS: CALCIUM, SERUM 8.3 MG/DL (8.5-10.4); CO2 (CARBON DIOXIDE) 26 MMOL/L (24-34); GLUCOSE, SERUM 93 MG/DL (60-99)
[2017-01-22 06:50] LABS: BASOPHILS 0.3 %; BASOPHILS ABSOLUTE 0.02 10/3/uL (0.0-0.16); EOSINOPHILS 1.4 %; HEMATOCRIT 29.7 % (36.0-48.0); HEMOGLOBIN 10.2 g/dL (12.0-16.0); IMMATURE GRANULOCYTES 0.7 %; IMMATURE GRANULOCYTES ABSOLUTE 0.05 10/3/uL (0.0-0.11); LYMPHOCYTES 13.7 %; LYMPHOCYTES ABSOLUTE 0.99 10/3/uL (0.67-4.30); MEAN CORPUS HGB CONC 34.3 g/dL (32.0-36.0); MEAN CORPUSCULAR HEMOGLOB 30.6 pg (26.0-34.0); MEAN CORPUSCULAR VOLUME 89.2 fL (80-100); MEAN PLATELET VOLUME 8.2 fL (9.2-13.0); MONOCYTES 9.4 %; MONOCYTES ABSOLUTE 0.68 10/3/uL (0.21-1.20); NEUTROPHILS 74.5 %; NEUTROPHILS ABSOLUTE 5.37 10/3/uL (2.02-8.40); PLATELET COUNT 388 10/3/uL (150-400); RBC DISTRIBUTION WIDTH 14.3 % (12.0-16.0); RED CELL COUNT 3.33 10/6/uL (4.0-5.6); WHITE BLOOD CELLS 7.2 10/3/uL (4.5-10.5)
[2017-01-22 06:52] LABS: MANUAL DIFF NO %
[2017-01-22 07:02] LABS: BUN (BLOOD UREA NITROGEN) 8 MG/DL (6-23); CALCIUM, SERUM 8.2 MG/DL (8.5-10.4); CHLORIDE, SERUM 102 MMOL/L (96-112); CO2 (CARBON DIOXIDE) 22 MMOL/L (24-34); CREATININE 0.56 MG/DL (0.55-1.02); GFR AFRICAN AMERICAN 104 ML/MIN (>=60); GFR NON AFRICAN AMERICAN 89 ML/MIN (>=60); GLUCOSE, SERUM 84 MG/DL (60-99); POTASSIUM, SERUM 3.9 MMOL/L (3.5-5.3); SODIUM, SERUM 132 MMOL/L (135-148)
[2017-01-23 05:20] LABS: BASOPHILS 0.3 %; BASOPHILS ABSOLUTE 0.02 10/3/uL (0.0-0.16); EOSINOPHILS 3.5 %; EOSINOPHILS ABSOLUTE 0.28 10/3/uL (0.0-0.53); HEMATOCRIT 28.2 % (36.0-48.0); HEMOGLOBIN 9.5 g/dL (12.0-16.0); IMMATURE GRANULOCYTES 0.4 %; IMMATURE GRANULOCYTES ABSOLUTE 0.03 10/3/uL (0.0-0.11); LYMPHOCYTES 14.2 %; LYMPHOCYTES ABSOLUTE 1.12 10/3/uL (0.67-4.30); MEAN CORPUS HGB CONC 33.7 g/dL (32.0-36.0); MEAN CORPUSCULAR HEMOGLOB 30.5 pg (26.0-34.0); MEAN CORPUSCULAR VOLUME 90.7 fL (80-100); MEAN PLATELET VOLUME 8.6 fL (9.2-13.0); MONOCYTES 9.5 %; MONOCYTES ABSOLUTE 0.75 10/3/uL (0.21-1.20); NEUTROPHILS 72.1 %; PLATELET COUNT 341 10/3/uL (150-400); RBC DISTRIBUTION WIDTH 14.4 % (12.0-16.0); RED CELL COUNT 3.11 10/6/uL (4.0-5.6); WHITE BLOOD CELLS 7.9 10/3/uL (4.5-10.5)
[2017-01-23 05:23] LABS: CALCIUM, SERUM 7.6 MG/DL (8.5-10.4); CHLORIDE, SERUM 101 MMOL/L (96-112); CO2 (CARBON DIOXIDE) 24 MMOL/L (24-34); CREATININE 0.54 MG/DL (0.55-1.02); GFR AFRICAN AMERICAN 105 ML/MIN (>=60); GFR NON AFRICAN AMERICAN 90 ML/MIN (>=60); GLUCOSE, SERUM 87 MG/DL (60-99); MANUAL DIFF NO %; SODIUM, SERUM 132 MMOL/L (135-148)
[2017-01-23 05:24] LABS: INTERNATIONAL NORMAL RATI 1.1 UNITS (-); PROTIME (NOT ORD) 14.2 SEC (12.0-14.5)
[2017-01-23 05:26] LABS: BUN (BLOOD UREA NITROGEN) 4 MG/DL (6-23)
[2017-01-24 07:11] LABS: BASOPHILS 0.3 %; BASOPHILS ABSOLUTE 0.02 10/3/uL (0.0-0.16); EOSINOPHILS 3.9 %; EOSINOPHILS ABSOLUTE 0.26 10/3/uL (0.0-0.53); HEMATOCRIT 29.4 % (36.0-48.0); HEMOGLOBIN 9.8 g/dL (12.0-16.0); IMMATURE GRANULOCYTES 0.3 %; IMMATURE GRANULOCYTES ABSOLUTE 0.02 10/3/uL (0.0-0.11); LYMPHOCYTES 15.4 %; LYMPHOCYTES ABSOLUTE 1.03 10/3/uL (0.67-4.30); MEAN CORPUS HGB CONC 33.3 g/dL (32.0-36.0); MEAN CORPUSCULAR HEMOGLOB 29.9 pg (26.0-34.0); MEAN CORPUSCULAR VOLUME 89.6 fL (80-100); MEAN PLATELET VOLUME 8.7 fL (9.2-13.0); MONOCYTES 12.3 %; MONOCYTES ABSOLUTE 0.82 10/3/uL (0.21-1.20); NEUTROPHILS 67.8 %; NEUTROPHILS ABSOLUTE 4.52 10/3/uL (2.02-8.40); PLATELET COUNT 361 10/3/uL (150-400); RBC DISTRIBUTION WIDTH 14.2 % (12.0-16.0); RED CELL COUNT 3.28 10/6/uL (4.0-5.6); WHITE BLOOD CELLS 6.7 10/3/uL (4.5-10.5)
[2017-01-24 07:12] LABS: MANUAL DIFF NO %
[2017-01-24 07:19] LABS: PROTIME (NOT ORD) 13.3 SEC (12.0-14.5)
[2017-01-24 07:28] LABS: BUN (BLOOD UREA NITROGEN) 7 MG/DL (6-23); CALCIUM, SERUM 7.9 MG/DL (8.5-10.4); CHLORIDE, SERUM 99 MMOL/L (96-112); POTASSIUM, SERUM 4.1 MMOL/L (3.5-5.3); SODIUM, SERUM 132 MMOL/L (135-148)
[2017-01-24 07:30] LABS: CO2 (CARBON DIOXIDE) 25 MMOL/L (24-34); CREATININE 0.55 MG/DL (0.55-1.02); GFR AFRICAN AMERICAN 104 ML/MIN (>=60); GFR NON AFRICAN AMERICAN 90 ML/MIN (>=60); GLUCOSE, SERUM 94 MG/DL (60-99)
[2017-01-25 07:15] LABS: BASOPHILS 0.3 %; BASOPHILS ABSOLUTE 0.02 10/3/uL (0.0-0.16); EOSINOPHILS ABSOLUTE 0.18 10/3/uL (0.0-0.53); HEMATOCRIT 32.1 % (36.0-48.0); IMMATURE GRANULOCYTES 0.3 %; IMMATURE GRANULOCYTES ABSOLUTE 0.02 10/3/uL (0.0-0.11); LYMPHOCYTES 17.4 %; LYMPHOCYTES ABSOLUTE 1.06 10/3/uL (0.67-4.30); MEAN CORPUS HGB CONC 34.3 g/dL (32.0-36.0); MEAN CORPUSCULAR HEMOGLOB 30.7 pg (26.0-34.0); MEAN CORPUSCULAR VOLUME 89.7 fL (80-100); MEAN PLATELET VOLUME 8.8 fL (9.2-13.0); MONOCYTES 12.2 %; MONOCYTES ABSOLUTE 0.74 10/3/uL (0.21-1.20); NEUTROPHILS 66.8 %; NEUTROPHILS ABSOLUTE 4.06 10/3/uL (2.02-8.40); PLATELET COUNT 396 10/3/uL (150-400); RED CELL COUNT 3.58 10/6/uL (4.0-5.6); WHITE BLOOD CELLS 6.1 10/3/uL (4.5-10.5)
[2017-01-25 07:18] LABS: MANUAL DIFF NO %
[2017-01-25 07:21] LABS: PROTIME (NOT ORD) 12.9 SEC (12.0-14.5)
[2017-01-25 07:26] LABS: BUN (BLOOD UREA NITROGEN) 7 MG/DL (6-23); CALCIUM, SERUM 8.1 MG/DL (8.5-10.4); CHLORIDE, SERUM 98 MMOL/L (96-112); CO2 (CARBON DIOXIDE) 28 MMOL/L (24-34); CREATININE 0.61 MG/DL (0.55-1.02); GFR AFRICAN AMERICAN 101 ML/MIN (>=60); GFR NON AFRICAN AMERICAN 87 ML/MIN (>=60); GLUCOSE, SERUM 100 MG/DL (60-99); POTASSIUM, SERUM 3.8 MMOL/L (3.5-5.3); SODIUM, SERUM 131 MMOL/L (135-148)
[2017-01-25 15:43] LABS: SODIUM, URINE 76 MEQ/L
[2017-01-25 15:47] LABS: OSMOLALITY, URINE 381 MOSM/KG (50-1200)
[2017-01-26 06:37] LABS: BUN (BLOOD UREA NITROGEN) 6 MG/DL (6-23); CALCIUM, SERUM 8.3 MG/DL (8.5-10.4); CHLORIDE, SERUM 97 MMOL/L (96-112); CO2 (CARBON DIOXIDE) 30 MMOL/L (24-34); CREATININE 0.55 MG/DL (0.55-1.02); GFR AFRICAN AMERICAN 104 ML/MIN (>=60); GFR NON AFRICAN AMERICAN 90 ML/MIN (>=60); GLUCOSE, SERUM 92 MG/DL (60-99); POTASSIUM, SERUM 4.4 MMOL/L (3.5-5.3); SODIUM, SERUM 134 MMOL/L (135-148)
[2017-01-26] MEDS ORDERED: FESO4 PO (11:08)
[2017-01-26] MEDS ORDERED: METPAKSF PO (11:09)
[2017-01-26] MEDS ORDERED: PROTONIX PO (11:09)
[2017-01-26] MEDS ORDERED: NORCO1 TA2 PO (11:10)
[2017-01-28] MEDS ORDERED: PROTONIX PO (17:41)
[2017-01-28] MEDS ORDERED: PROZAC PO (17:42)
[2017-01-28] MEDS ORDERED: DETROLLA4 PO (17:42)
[2017-01-28] MEDS ORDERED: SYN.025B PO (17:42)
[2017-01-28] MEDS ORDERED: ATV.5 PO (17:48)
[2017-01-28] MEDS ORDERED: ATEN50 PO (17:49)
[2017-01-28] MEDS ORDERED: ZOCOR40 PO (17:49)
[2017-01-28] MEDS ORDERED: VENTOLIN HFA INH (17:50)
[2017-01-28] MEDS ORDERED: RESTASIS OPH (17:50)
[2017-01-28] MEDS ORDERED: VITAMIN B-12 PO (17:51)
[2017-01-28] MEDS ORDERED: VITAMIN D3 PO (17:52)
[2017-01-28] MEDS ORDERED: ACET500CAP PO (17:54)
[2017-01-28] MEDS ORDERED: METPAKSF PO (17:54)
== END 2017-01-26 12:26 | disposition home or self-care (01) | DRG 481 ==
LOC: 1SO 16:21
PROVIDERS: Internal Medicine; Internal Medicine Gastroenterology; Nurse Practitioner; Nurse Practitioner Family; Specialist
PROC: 0DB78ZX Excision of Stomach, Pylorus, Via Natural or Artificial Opening Endoscopic, Diagnostic (ICD-10-PCS; 2017-01-21)
PROC: 0QS634Z Reposition Right Upper Femur with Internal Fixation Device, Percutaneous Approach (ICD-10-PCS; principal; 2017-01-23)
DX: S72.001A Fracture of unspecified part of neck of right femur, initial encounter for closed fracture (principal); E22.2 Syndrome of inappropriate secretion of antidiuretic hormone; D62 Acute posthemorrhagic anemia; E86.0 Dehydration; K26.9 Duodenal ulcer, unspecified as acute or chronic, without hemorrhage or perforation; E11.9 Type 2 diabetes mellitus without complications; M41.9 Scoliosis, unspecified; K29.00 Acute gastritis without bleeding; K29.80 Duodenitis without bleeding; I10 Essential (primary) hypertension; K58.0 Irritable bowel syndrome with diarrhea; E78.00 Pure hypercholesterolemia, unspecified; K21.9 Gastro-esophageal reflux disease without esophagitis; F41.9 Anxiety disorder, unspecified; E03.9 Hypothyroidism, unspecified; E87.6 Hypokalemia; W18.30XA Fall on same level, unspecified, initial encounter; Z79.899 Other long term (current) drug therapy; Z86.73 Personal history of transient ischemic attack (TIA), and cerebral infarction without residual deficits; Z96.612 Presence of left artificial shoulder joint; Z88.5 Allergy status to narcotic agent; Z88.8 Allergy status to other drugs, medicaments and biological substances; Z91.040 Latex allergy status
CPT/HCPCS: 71020; 73501-RT; 74177; 74178; 74240; 76000; 80048; 80053; 82150; 82962; 83036; 83690; 83735; 83930; 83935; 84100; 84132; 84295; 84300; 84443; 85025; 85610; 86677; 87493; 87493-59; 88305; 93005; 97116-GP; 97161-GP; 97165-GO; 97535-GO; A9270-GY; C1713; C1769; C9113; G8978-CK-GP; G8979-CI-GP; G8987-CJ-GO; G8988-CI-GO; J0690; J1170; J1885; J2270; J2405; J2795; J3010; J3475; Q9967